=== PATIENT | female | born 1995 | race Caucasian/White ===

== ENCOUNTER → 2024-11-15 08:14 | Outpatient (CLI) | payer OTHER, SELFPAY ==
--- NOTE | 2024-11-15 08:15 | DI.US.S_ITS ---
PROCEDURE: US PELVIC COMPLETE INDICATIONS: MIDLINE PELVIC PAIN TECHNIQUE: Real-time scanning was performed of the pelvic organs, with image documentation. Additional endovaginal scanning was necessary due to incomplete visualization of the adnexal and endometrial structures by transabdominal scanning. COMPARISON: None. FINDINGS: Uterus: Uterus is anteverted and normal in size at 8.2 x 4.5 x 3.7 cm. The myometrium is homogeneous. The endometrium measures 7.8 mm combined thickness. Ovaries: The right ovary measures 3.8 x 2.0 x 2.1 cm, with a calculated ovarian volume of 8.3 cc. The left ovary measures 4.8 x 4.8 x 3.0 cm, with a calculated ovarian volume of 36.3 cc. The ovaries have a normal sonographic appearance. Two complex cysts within the left ovary measure 1.8 and 2.8 cm respectively. Both ovaries have appropriate vascularity No adnexal masses are seen. Other: No pathologic free abdominal or pelvic fluid. IMPRESSION: Complex left ovarian cysts measuring up to 2.8 cm, probable hemorrhagic cysts. Consider follow-up ultrasound in 3-4 months Approved by: Dean Suárez M.D. on 11/15/2024 at 17:53
== END ==
PROVIDERS: Referring Provider Obstetrics & Gynecology; Visit Provider Obstetrics & Gynecology
DX: N92.6 Irregular menstruation, unspecified (principal); N83.292 Other ovarian cyst, left side
CPT/HCPCS: 76830; 76856; 93975

== ENCOUNTER → 2024-12-14 09:40 | Outpatient (CLI) | payer OTHER, SELFPAY ==
--- NOTE | 2024-12-14 09:42 | DI.CT.S_ITS ---
PROCEDURE: CT IVP A/P W/WO INDICATIONS: PELVIC PAIN/CONGENITAL DEFECT OF RENAL PELVIS/URET TECHNIQUE: Optional 5 mm thick noncontrast images acquired from the diaphragm to the symphysis pubis. After the administration of intravenous contrast, 5 mm thick images acquired from the diaphragm to the symphysis pubis after a 10-minute delay. 2 mm thick coronal and sagittal reformats were then performed of the kidneys and ureters. For radiation dose reduction, the following was used: automated exposure control, adjustment of mA and/or kV according to patient size. COMPARISON: [facility], , US PELVIC COMPLETE, 11/15/2024, 8:26. FINDINGS: Image quality: Diagnostic. Kidneys and Ureters: Both kidneys are normal in size, without hydronephrosis or nephrolithiasis. No perinephric fat stranding. There is normal bilateral renal enhancement. Renal calyces appear normal in morphology when filled with contrast. Opacified portions of both ureters demonstrate normal caliber there is no duplicated collecting system identified on either side. Bladder: Bladder wall thickness is normal. No calcified bladder stones. OTHER: Lower chest: Unremarkable. Liver: No solid mass. Gallbladder: No radiopaque gallstones or wall thickening. Biliary ducts: No biliary dilation. Pancreas: No ductal dilation. Spleen: Size is within normal limits. Adrenal Glands: No adrenal nodules. Stomach and Bowel: Normal colonic caliber, without significant wall thickening. Peritoneum: No abnormal intraperitoneal fluid. No free air. Ventral Wall: No hernia. Abdominal Nodes: No retroperitoneal or mesenteric adenopathy by size criteria. Vessels: Aorta and inferior vena cava are normal in size. PELVIS: Pelvic Organs: 3.2 cm right ovarian cyst. Physiologic fluid in the pelvis. Pelvic Nodes: No enlarged lymph nodes. Miscellaneous: No inguinal hernias are seen. Bones: No aggressive osseous abnormality. IMPRESSION: Unremarkable CT IVP. No evidence of collecting system duplication. Normal enhancement with no hydronephrosis. No stones. No acute abdominal process identified. 3.2 cm right ovarian cyst. Dictated by: Marcos Elizalde M.D. on 12/14/2024 at 11:55 Approved by: Marcos Elizalde M.D. on 12/14/2024 at 11:59
== END ==
PROVIDERS: Referring Provider Family Medicine; Visit Provider Family Medicine
DX: N83.201 Unspecified ovarian cyst, right side (principal); R10.2 Pelvic and perineal pain; Q62.39 Other obstructive defects of renal pelvis and ureter
CPT/HCPCS: 74178; Q9967

== ENCOUNTER 2024-12-30 11:49 | Day surgery (SDC) | payer OTHER, SELFPAY ==
[2024-12-18 13:11] VITALS: BMI 20.5
[2024-12-30] VITALS (9 sets, daily range): BP systolic 89–107; BP diastolic 51–78; PULSE 57–80; RESP 14–16; TEMP 36.3–36.6; O2SAT 98–100; BMI 20.3
--- NOTE | 2024-12-30 | PATH_ITS ---
[facility] Accession Number: [id number] No. of containers..01 Tissue . 01 Material submitted: . body - LEFT PARATUBAL CYST . 01 Diagnosis: LEFT PARATUBAL CYST, EXCISION: Benign serous cyst, 1.5 cm, paratubal. Negative for atypia or malignancy. [facility] 01/01/2025 1556 Local . 01 Electronically signed: . Ty Estrada MD, Pathologist NPI- [id number] . 01 Gross description: . Received in formalin with two patient identifiers and left paratubal cyst, is an intact pedunculated cystic structure, 1.5 x 1.1 x 0.7 cm. The stalk margin is inked blue. Sectioning reveals a thin smooth-walled cyst filled with chang serous fluid and no excrescence identified. The specimen is submitted entirely in A1. ([id number]) /MRV 12/31/2024 1937 Local . 01 Pathologist provided ICD-10: E28.2, N80.9 . 01 CPT . 128211 Specimen Comment: A courtesy copy of this report has been sent to [phone] Performed at: [address] [address], [place], [place] [id number] MD Emanuel Dias MD Phone: [phone]
[2024-12-30] MEDS: LACTATED RINGERS 1,000 ML 42 ML IV ×2 (12:25→15:07)
[2024-12-30] MEDS: SCOPOLAMINE 1 PATCH TOP (12:25)
[2024-12-30] MEDS: ACETAMINOPHEN 325 MG TABLET 975 MG PO (12:25)
--- NOTE | 2024-12-30 13:08 | PM.GYNHP.1 ---
History of Present Illness History of Present Illness Narrative: Ariadna Beauchamp is a 29 year old female 0 who presents for a diagnostic laparoscopy and treatment polycystic ovary/ovarian cyst on the right. This is a persistent cyst on ultrasound and CT scan as late as December 14, 2024. REPLACED BY [facility] Social History household members: friend(s) Smoking Status: Never smoker alcohol intake: never Meds Home Medications and Allergies Home Medications Medication Instructions Recorded Confirmed Type dextroamphetamine-amphetamine 15 15 mg PO DAILY 11/29/24 12/30/24 History mg tablet (Adderall) Allergies Allergy/AdvReac Type Severity Reaction Status Date / Time Penicillins Allergy Mild Rash Verified 12/30/24 12:22 Exam Vital Signs (past 8 hours): - 12/30/24 12:42 Temperature 97.8 F Pulse Rate 64 Respiratory Rate 16 Blood Pressure 102/65 Pulse Oximetry 99 Oxygen Delivery Method Room Air Oxygen Delivery Method Room Air Narrative Exam Narrative: HEENT: No thyromegaly, no anterior cervical or supraclavicular lymphadenopathy. Lungs:Clear to auscultation bilaterally, no wheezes. Cardiovascular: Regular rate and rhythm, no murmurs, rubs, or gallops. Abdomen: No scars. No hepatosplenomegaly. No masses palpable. External genitalia: Normal Vagina: Normal Cervix: Normal Bimanual exam: 6 Week size anterior uterus. Mobile. Extremities: No edema Assessment & Plan Assessment & Plan narrative: Assessment: 29-year-old 0 with dysmenorrhea, right ovarian cyst, and pelvic pain Plan: Diagnostic laparoscopy with treatment of right ovarian cyst, and possible treatment of endometriosis The risks, benefits, and alternatives to the procedure were explained to the patient. The risks including bleeding, infection, injury to the bowel, bladder, or ureters. She understands these risks and agrees to proceed. A full par Q was held and consent form was signed. Time-Based Coding :: [TOTAL MINUTES] spent with patient and on the chart (including review of chart, obtaining history, exam, reviewing outside data, placing orders, documenting exam and treatment plan, and counseling patient) on [DATE].
--- NOTE | 2024-12-30 13:10 | PM.PREOP ---
Pre-operative Note Interval Note History & Physical reviewed/Exam performed by Physician: Yes Changes to H&P: No H&P completed within 30 days and has changed as indicated here:: 12/30/24
[2024-12-30] MEDS: ACETAMINOPHEN IV 1,000 MG/100 ML VIAL 400 MG IV (14:10)
[2024-12-30] MEDS: BUPIVACAINE 0.5% W/ EPI (PF) 30 ML VIAL INJ (14:12)
--- NOTE | 2024-12-30 14:13 | SUR.OPER ---
Lithotomy on padded OR bed. [place] Pad Positioner under torso. Head on pillow, arms padded and tucked at sides. Legs secured in padded yellow fins stirrups.
--- NOTE | 2024-12-30 15:16 | P.OP_ITS ---
Operative Date/Time/Diagnoses Date of procedure: 12/30/24 Time of procedure: 15:16 Pre-op diagnosis: 29-year-old 0 with pelvic pain, dyspareunia, and a right ovarian cyst Post-op diagnosis: same Procedure & Clinicians Procedure: Procedures Operation Date: 12/30/24 14:45 Actual Procedure Side Surgeon p DIAGNOSTIC LAPAROSCOPY, EXCISION OF LEFT PARATUBAL CYST, TREATMENT OF 2 CYSTS RIGHT OVARY Stacy Fontanez MD Indications: Dyspareunia Pelvic pain Persistent right ovarian cyst Surgeon: Stacy Fontanez Anesthesia Type: General and Local Operative Notes Findings: Six week size anteverted uterus 2 cm left paratubal cyst 2 small hemorrhagic cysts on the right ovary Normal liver and gallbladder Normal appendix Normal left ovary Normal right tube No evidence of endometriosis in the anterior or posterior cul-de-sacs, bilateral sidewalls, or on the tubes or ovaries Closure Type: primary Specimen(s): other (Left paratubal cyst) Estimated blood loss (mL): 5 Blood products transfused: none Procedure in detail: After informed consent was obtained, the patient was taken to the operating room where she was placed in the dorsal supine position. After adequate general endotracheal anesthesia was achieved, she was placed in the dorsal lithotomy position, and prepped and draped in the usual sterile fashion. A time-out was performed. A bivalve speculum was placed into the vagina and the anterior lip of the cervix was grasped with a single-tooth tenaculum. The cervical os was sequentially dilated until the Zumi uterine manipulator could pass easily into the endometrial cavity. The single-tooth tenaculum was removed from the anterior lip of the cervix. The bivalve speculum was removed from the vagina. Attention was then turned to the abdomen where 6 cc of 0.5% Marcaine with epinephrine were injected in the umbilical fold. A 5 mm incision was made. Veress needle was placed into the peritoneal cavity, and its placement confirmed by aspiration and drop test. The abdomen was insufflated with 2.9 L of CO2. Th e Veress needle was removed. A 5 mm trocar was placed without difficulty. A second incision was made after 6 cc of 0.5% Marcaine with epinephrine were injected 4 cm lateral to the midline at the level of the umbilicus. A second 5 mm trocar was placed under direct visualization. Using the probe, the pelvis and abdomen were examined with the findings noted above. There was a paratubal cyst on the left side. A third trocar was placed 4 cm right lateral to the midline after 6 cc of 0.5% Marcaine with epinephrine were injected. The cyst was grasped with a atraumatic grasper. With care to avoid the tube, the endo Doug were used with cautery to separate the paratubal cyst from the tube. This was grasped with an atraumatic grasper and removed through the right lateral trocar. The remainder of the abdomen and pelvis were examined. No endometriosis was encountered in the cul-de-sacs, bilateral ovarian fossa, or on the ovaries. There were 2 hemorrhagic cysts on the right ovary. The spatula cautery was used to enter the cysts and there was rupture. The spatula was used for hemostasis. There was another small simple clear cyst. This was cauterized as well. Hemostasis was achieved. The instruments were removed from the abdomen. The CO2 was allowed to escape. The incisions were closed with 4-0 Monocryl in a subcuticular fashion. Steri-Strips and Allevyn dressings were p laced. The Zumi uterine manipulator was removed from the uterus. Sponge, lap, and instrument counts were correct x2. The patient tolerated the procedure well, and was taken to PACU in stable condition. Complications: none Post-operative Condition: stable Disposition: PACU Plan for aftercare: Home after recovery
[2024-12-30] MEDS: OXYCODONE IR 5 MG TABLET PO (15:17)
== END 2024-12-30 16:15 | disposition home or self-care (01) ==
PROVIDERS: Referring Provider Obstetrics & Gynecology; Visit Provider Obstetrics & Gynecology
PROC: (CPT 49320; principal; 2024-12-30 14:45)
DX: E28.2 Polycystic ovarian syndrome (principal); N83.8 Other noninflammatory disorders of ovary, fallopian tube and broad ligament
CPT/HCPCS: 58662; 81025; J0131; J1100; J1885; J2250; J2405; J2704; J3010